=== PATIENT | male | born 1955 | race Hispanic/Latino ===

== ENCOUNTER 2023-03-29 09:31 | Emergency (ER) | payer MEDICARE ==
[~2023-03-29] VITALS: Ht 177.8 cm; Wt 81.6 kg
[2023-03-29 09:36] VITALS: BP 145/86; PULSE 109; RESP 16; O2SAT 99
[2023-03-29] MEDS ORDERED: PREDNISONE 20 MG TABLET PO ONE (10:00)
[2023-03-29] MEDS ORDERED: ONDANSETRON ODT 4MG TAB SL ONE (10:00)
[2023-03-29] MEDS ORDERED: DIAZEPAM 5 MG TABLET PO ONE (10:00)
[2023-03-29] MEDS ORDERED: IBUPROFEN 600 MG TABLET PO ONE (10:00)
[2023-03-29] MEDS ORDERED: GABAPENTIN 300 MG CAPSULE PO SCH (10:00)
[2023-03-29] MEDS ORDERED: PRED20TA3 PO (12:24)
[2023-03-29] MEDS ORDERED: METH-811 PO (12:24)
== END 2023-03-29 12:30 | disposition home or self-care (01) ==
LOC: EDH 09:31
DX: S76.011A Strain of muscle, fascia and tendon of right hip, initial encounter (principal); Z98.890 Other specified postprocedural states; Z88.5 Allergy status to narcotic agent; W18.39XA Other fall on same level, initial encounter; Y93.89 Activity, other specified; Y92.89 Other specified places as the place of occurrence of the external cause; Y99.8 Other external cause status
CPT/HCPCS: 72170